=== PATIENT | male | born 1955 | race American Indian/Alaskan Native ===

== ENCOUNTER 2020-10-13 13:55 | Emergency (ER) | payer BC ==
[2020-10-13 14:34] VITALS: BP 154/99
--- NOTE | 2020-10-13 14:42 | Event Note ---
ED Screening Note Date of service: 10/13/20 Time: 14:40 ED Screening Note: 65-year-old -[place] male presents to the emergency room stating that his Dr. Ashley Zendejas sent him to the emergency room because his CK enzymes were elevated at 850. Patient denies any shortness of breath denies any hematuria no abdominal pain no chest pain no dark urine no fever no chills. Patient does admit to gluteal muscle and leg pain. Patient denies any increased working out. Patient does have a past medical history of diabetes and hypertension and is currently taking Metformin and glipizide lisinopril and amlodipine. Patient reports that he is up-to-date on all his vaccines has not had any Covid contact. Dr. Ashley Zendejas's phone number [phone] This initial assessment/diagnostic orders/clinical plan/treatment(s) is/are subject to change based on patients health status, clinical progression and re- assessment by fellow clinical providers in the ED. Further treatment and workup at subsequent clinical providers discretion. Patient/guardian urged not to elope from the ED as their condition may be serious if not clinically assessed and managed. Initial orders include: CBC, CMP, CK, ESR, CRP and urinalysis has been ordered.
[2020-10-13 15:55] LABS: Alanine Aminotransferase 23 units/L (7-56); Albumin 4.4 g/dL (3.9-5); BUN/Creatinine Ratio 18; Blood Urea Nitrogen 20 mg/dL (9-20); Calcium 9.7 mg/dL (8.4-10.2); Hemolysis Index 22
[2020-10-13] MEDS ORDERED: SODIUM CHLORIDE 0.9% 1000 ML 1,000 ML IV ONE (16:05)
[2020-10-13 16:07] LABS: Basophils % (Auto) 0.3 % (0.0-1.8); Eosinophils # (Auto) 0.3 K/mm3 (0.0-0.4); Eosinophils % (Auto) 3.5 % (0.0-4.3); Hematocrit 45.5 % (35.5-45.6); Lymphocytes # (Auto) 4.2 K/mm3 (1.2-5.4); Lymphocytes % (Auto) 46.5 % (13.4-35.0); Mean Corpuscular HGB Conc 33 % (32-34); Mean Corpuscular Volume 87 fl (84-94); Monocytes # (Auto) 0.6 K/mm3 (0.0-0.8); Monocytes % (Auto) 7.1 % (0.0-7.3); Platelet Count 185 K/mm3 (140-440); Red Blood Count 5.22 M/mm3 (3.65-5.03)
--- NOTE | 2020-10-13 16:44 | Emergency Department Report ---
ED Medical Clearance HPI - General Chief complaint: Medical Clearance Stated complaint: ENZYME LOW Time Seen by Provider: 10/13/20 16:30 Source: patient Mode of arrival: Ambulatory Limitations: No Limitations - History of Present Illness Initial comments: The patient was evaluated in the emergency department for symptoms described in the history of present illness. He/she was evaluated in the context of the global COVID-19 pandemic, which necessitated consideration that the patient might be at risk for infection with the virus that causes COVID-19. Institutional protocols and algorithms that pertain to the evaluation of patients at risk for COVID-19 are in a state of rapid change based on information released by regulatory bodies including the CDC and federal and state organizations. These policies and algorithms were followed during the ron mccabe's care in the emergency department. Please note that these policies, procedures and recommendations changed on a rapid basis. The patient is a 65-year-old gentleman. He is not known to myself previously. The patient is brought to the emergency room today by himself for evaluation for asymptomatic elevated CK level. Patient reports that he was following up with his outpatient primary care doctor, was having routine outpatient laboratory studies including urinalysis, apparently, patient states that he had an asymptomatic incidental abnormality in his urinalysis, thus a CK level was sent by his primary care doctor, and it was found to be 300. Apparently, his primary care doctor referred him to the emergency room for his elevated CK level. The patient denies headache, neck pain, chest pain, abdominal pain, shortness of breath, testicular pain, dysuria. The patient has chronic infra gluteal pain, which has been present for 7 months to 12 months. It radiates down the left lower extremity. The patient states he is not done any heavy lifting, strenuous physical activity, and specifically denies taking cholesterol medication/statin medication. He has not taken any [id number] medications for his pain that he can recall. Furthermore, the patient is currently retired, and denies heavy lifting. Complaint: medical clearance request -: month(s) Alledged Intoxication: No Compliant with Home Medications: Yes Traumatic Symptoms: denies traumatic injury Allergies/Adverse reactions: Allergies Allergy/AdvReac Type Severity Reaction Status Date / Time No Known Allergies Allergy Unverified 10/13/20 14:16 ED Review of Systems ROS: Stated complaint: ENZYME LOW Other details as noted in HPI Comment: All other systems reviewed and negative Musculoskeletal: myalgia Neurological: paresthesias ED Past Medical Hx - Past Medical History Previous Medical History?: Yes Hx Hypertension: Yes Hx Diabetes: Yes Additional medical history: muscles aches - Surgical History Additional Surgical History: unsure - Social History Smoking Status: Never Smoker Substance Use Type: Alcohol ED Physical Exam - General Limitations: No Limitations, Other (During the entire physical examination, chap eroned by Jovanna Kline) General appearance: alert, in no apparent distress - Head Head exam: Present: atraumatic, normocephalic - Eye Eye exam: Present: normal appearance, EOMI. Absent: nystagmus - ENT ENT exam: Present: normal exam, normal orophraynx, mucous membranes moist, normal external ear exam - Neck Neck exam: Present: normal inspection, full ROM. Absent: tenderness, meningismus - Respiratory Respiratory exam: Present: normal lung sounds bilaterally. Absent: respiratory distress, wheezes, rales, rhonchi, stridor, decreased breath sounds - Cardiovascular Cardiovascular Exam: Present: regular rate, normal rhythm, normal heart sounds. Absent: bradycardia, tachycardia, irregular rhythm, systolic murmur, diastolic murmur, rubs, gallop - GI/Abdominal GI/Abdominal exam: Present: soft. Absent: distended, tenderness, guarding, rebound, rigid, pulsatile mass - Rectal Rectal exam: Present: deferred - Extremities Exam Extremities exam: Present: normal inspection, full ROM, other (2+ pulses noted in the bilateral upper and lower extremities. There is no palpable cord. negative Homans sign. Muscular compartments are soft. The pelvis is stable.). Absent: pedal edema, calf tenderness - Back Exam Back exam: Present: normal inspection, full ROM. Absent: tenderness, CVA tenderness (R), CVA tenderness (L), paraspinal tenderness, vertebral tenderness - Neurological Exam Neurological exam: Present: alert, oriented X3, normal gait, other (No facial droop. Tongue midline. Extraocular movements intact bilaterally. Facial s ensation intact to light touch in V1, V2, V3 distribution bilaterally. 5 and a 5 strength in 4 extremities. Sensation intact to light touch in 4 extremities.). Absent: motor sensory deficit - Psychiatric Psychiatric exam: Present: normal affect, normal mood - Skin Skin exam: Present: warm, dry, intact, normal color. Absent: rash ED Course Vital Signs 10/13/20 14:30 Temperature 97.8 F Pulse Rate 90 Respiratory 20 Rate Blood Pressure 154/99 Blood Pressure 154/99 [Right] O2 Sat by Pulse 98 Oximetry ED Medical Decision Making - Lab Data Result diagrams: 10/13/20 14:46 10/13/20 14:46 Vital Signs 10/13/20 14:30 Temperature 97.8 F Pulse Rate 90 Respiratory 20 Rate Blood Pressure 154/99 Blood Pressure 154/99 [Right] O2 Sat by Pulse 98 Oximetry Lab Results 10/13/20 10/13/20 10/13/20 Range/Units 14:46 14:46 14:46 WBC 9.0 (4.5-11.0) K/mm3 RBC 5.22 H (3.65-5.03) M/mm3 Hgb 15.0 (11.8-15.2) gm/dl Hct 45.5 (35.5-45.6) % MCV 87 (84-94) fl MCH 29 (28-32) pg MCHC 33 (32-34) % RDW 14.0 (13.2-15.2) % Plt Count 185 (140-440) K/mm3 Lymph % (Auto) 46.5 H (13.4-35.0) % [place] % (Auto) 7.1 (0.0-7.3) % Eos % (Auto) 3.5 (0.0-4.3) % Baso % (Auto) 0.3 (0.0-1.8) % Lymph # (Auto) 4.2 (1.2-5.4) K/mm3 [place] # (Auto) 0.6 (0.0-0.8) K/mm3 Eos # (Auto) 0.3 (0.0-0.4) K/mm3 Baso # (Auto) 0.0 (0.0-0.1) K/mm3 Seg Neutrophils % 42.6 (40.0-70.0) % Seg Neutrophils # 3.8 (1.8-7.7) K/mm3 Sodium 139 (137-145) mmol/L Potassium 4.4 (3.6-5.0) mmol/L Chloride 103.0 (98-107) mmol/L Carbon Dioxide 25 (22-30) mmol/L Anion Gap 15 mmol/L BUN 20 (9-20) mg/dL Creatinine 1.1 (0.8-1.3) mg/dL Estimated GFR > 60 ml/min BUN/Creatinine Ratio 18 % Glucose 93 (75-100) mg/dL Calcium 9.7 (8.4-10.2) mg/dL Total Bilirubin 0.30 (0.1-1.2) mg/dL AST 33 (5-40) units/L ALT 23 (7-56) units/L Alkaline Phosphatase 68 (35-129) units/L Total Creatine Kinase 743 H (55-170) units/L C-Reactive Protein 0.00 (0.00-1.30) mg/dL Total Protein 7.6 (6.3-8.2) g/dL Albumin 4.4 (3.9-5) g/dL Albumin/Globulin Ratio 1.4 % - Medical Decision Making Differential diagnosis, include but not limited to: Elevated CK, lumbar radiculopathy, general medical exam Assessment and plan: 65-year-old gentleman, who was afebrile, with reassuring vi lois signs, minimally elevated blood pressure which is asymptomatic, please reference the [employer] clinical policy on asymptomatic hypertension, who is referred to the emergency room by his primary care doctor for incidental asymptomatic elevated CK level. He has not participated in any strenuous physical activity, he does not take a statin, his muscular compartments are soft, and he is neurovascularly intact. On my evaluation, he is resting comfortably in his chair, speaking vigorously enthusiastically to his neighbor. He may have a component of lumbar radiculopathy, reports this symptom in his left lower extremity for 7 months to 12 months. However, he has no pulsatile abdominal mass, equal sensation to light touch in the bilateral lower extremities with downgoing plantar reflexes, and appropriate strength in his bilateral lower extremities. His examination and history are not suggestive of epidural compression syndrome, or AAA. I counseled the patient that his asymptomatic elevated CK level does not represent an emergency medical condition, that he may drink 6 to 8 cups of water per day indefinitely, and alternate Tylenol/ibuprofen for his radicular pain, participate in outpatient physical therapy, and initiate RICE therapy. Patient verbalizes understanding. He endorses no urinary symptoms at this time. Patient does not appear to have an emergent medical condition present at this time ED Disposition Clinical Impression: Radicular pain, Elevated CK Disposition: DC-01 TO HOME OR SELFCARE Is pt being admited?: No Does the pt Need Aspirin: No Condition: Stable Instructions: Creatine Kinase Test, Radicular Pain Additional Instructions: Please continue current outpatient medications. Patient stated that he does not take a statin cholesterol medication. If patient is incorrect, and takes a statin cholesterol medication, recommend discontinuing this medication right away. Recommend that patient drink 6 cups of water per day indefinitely. Recommend that patient avoid excessively heavy lifting, strenuous physical activity, but participate in light exercise as tolerated. Patient may participate in rest, ice, compression, elevation therapy for muscular pain, and alternate Tylenol, 650 mg by mouth, every 4-6 hours as needed for pain, maximum daily dose to not exceed 3 g per 24 hours, with ibuprofen, 400 mg by mouth, with food, every 6 hours as needed for pain. Patient may also benefit from outpatient physical therapy, he may follow-up with his primary care doctor for this, or follow-up with an orthopedic physician or sports medicine physician for this. Recommend follow-up with your doctor within the next 2 weeks. Please return to the emergency room right away with new pain, worsened pain, migration of pain, projectile vomiting, change in mental status, confusion, inability to tolerate liquid feeds. Referrals: CANDICE BOLIVAR MD [Primary Care Provider] - 7-10 days
[2020-10-13 17:01] LABS: Erythrocyte Sedimentation Rate 8 mm/Hr (0-20)
== END 2020-10-13 16:58 | disposition home or self-care (01) ==
LOC: ED 13:55
DX: M54.10 Radiculopathy, site unspecified (principal); R74.8 Abnormal levels of other serum enzymes; I10 Essential (primary) hypertension; E11.9 Type 2 diabetes mellitus without complications
CPT/HCPCS: 36415; 80053; 82550; 85025; 85652; 86140; 96360; 99283; J7030